=== PATIENT | male | born 1990 | race Caucasian/White ===

== ENCOUNTER 2016-12-25 12:15 | Emergency (ER) | payer OTHER ==
[~2016-12-25] VITALS: Ht 172.7 cm; Wt 77.4 kg
[~2016-12-25 12:15] MED LIST: TRAM50 PO
[2016-12-25 12:26] VITALS: BP 134/90; PULSE 82; RESP 16; TEMP 98.2; O2SAT 98
--- NOTE | 2016-12-25 12:56 | PD ---
HPI Chief Complaint: Headache Time Seen by Provider: 12:38 Travel History International Travel<30 days: No Contact w/Intl Traveler<30days: No Traveled to known affect area: No History of Present Illness HPI This patient complains of headache. He has chronic daily headaches but felt this was worse than usual. Location is bilateral and frontal. He's got a throbbing pounding headache. No thunderclap onset. No head injury or fever. 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 No alleviating factors. Duration of the worsening is one day. But his headache is chronic for years and daily basis. Symptoms are moderate PFSH Past Medical History Cancer: Yes (brain s/p surgery and radiation) Diminished Hearing: No Respiratory: Yes (hx of asthma as a child) Immunizations Current: No Tetanus Vaccination: < 5 Years ?: Not Past Surgical History Other Surgery: Yes (brain surgery 2013) Social History Alcohol Use: Yes ("WEEKENDS BIG TIME" 1X WEEK) Tobacco Use: Yes (chew) Substance Use: No Allergies-Medications (Allergen,Severity, Reaction): Coded Allergies: Penicillin (Verified Allergy, Severe, "I ", 12/25/16) Reported Meds & Prescriptions Reported Meds & Active Scripts Active Ultram (Tramadol HCl) 50 Mg Tab 50 Mg PO Q6 PRN Review of Systems General / Constitutional: No: Fever Eyes: No: Visual changes HENT: Positive: Headaches Cardiovascular: No: Chest Pain or Discomfort Respiratory: No: Shortness of Breath Gastrointestinal: No: Abdominal Pain Genitourinary: No: Dysuria Musculoskeletal: No: Pain Skin: No Rash Neurologic: Positive: Headache, No: Weakness Psychiatric: No: Depression Endocrine: No: Polydipsia Hematologic/Lymphatic: No: Easy Bruising Physical Exam Narrative GENERAL: Well-nourished, well-developed patient in no apparent distress. SKIN: Focused skin assessment reveals no rash and nodules. Skin is Warm and dry. HEAD: Atraumatic. Normocephalic. Craniotomy scar is evaluated and shows no sign of dehiscence or infection EYES: Pupils equal and round. No scleral icterus. No injection or drainage. ENT: No nasal bleeding or discharge. Mucous membranes pink and moist. NECK: Trachea midline. No JVD. No meningeal signs CARDIOVASCULAR: Regular rate and rhythm. No murmur appreciated. RESPIRATORY: No accessory muscle use. Clear to auscultation. Breath sounds equal bilaterally. GASTROINTESTINAL: Abdomen soft, non-tender, nondistended. Hepatic and splenic margins not palpable. MUSCULOSKELETAL: No obvious deformities. No clubbing. No cyanosis. No edema. NEUROLOGICAL: Awake and alert. No obvious cranial nerve deficits. Motor grossly within normal limits. Normal speech. PSYCHIATRIC: Appropriate mood and affect; insight and judgment normal. Data Data Last Documented VS Vital Signs Date Time Temp Pulse Resp B/P Pulse Ox O2 Delivery O2 Flow Rate FiO2 12/25/16 12:26 98.2 82 16 134/[address] Brain W/O Iv Contrast(Rout) (12/25/16 ) [facility] Medical Decision Making Medical Screen Exam Complete: Yes Emergency Medical Condition: Yes Medical Record Reviewed: Yes Differential Diagnosis Chronic headache, tumor recurrence, migraine Narrative Course I have reviewed the patient's electronic medical record. Reviewed a prior MRI from 2013 showing encephalomalacia without residual tumor Patient reports that his tumor was a benign growth and not cancerous He gets a CT scan every 6 months per his report but has not had one in a while He is neurologically intact Brain CT shows stable encephalomalacia but no new acute findings Stable for outpatient follow-up with primary care Diagnosis Primary Impression: History of brain cancer Additional Impression: Headache Qualified Code: R51 - Acute nonintractable headache, unspecified headache type Additional Instructions: The patient was advised to follow up with their physician and return if they worsen. Med/Other Pt SpecificInfo: Other Disposition: 01 DISCHARGE HOME Condition: Stable Carlos Hernandez MD Dec 25, 2016 12:56
--- NOTE | 2016-12-25 13:24 | RADHPO ---
EXAM DATE/TIME: 12/25/2016 13:09 [place] COMPARISON: CT BRAIN W/O CONTRAST, May 28, 2014, 4:55. INDICATIONS : Cephalgia. RADIATION DOSE: 60.43 CTDIvol (mGy) MEDICAL HISTORY : Benign brain tumor. SURGICAL HISTORY : Craniotomy. ENCOUNTER: Initial ACUITY: 1 day PAIN SCALE: 7/10 LOCATION: Bilateral frontal TECHNIQUE: Multiple contiguous axial images were obtained of the head. Using automated exposure control and adj ustment of the mA and/or kV according to patient size, radiation dose was kept as low as reasonably a chievable to obtain optimal diagnostic quality images. FINDINGS: CEREBRUM: The ventricles are normal for age. No evidence of midline shift, mass lesion, hemorrhage or acute in farction. No extra-axial fluid collections are seen. Encephalomalacia is again noted within the righ t temporal lobe status post resection. POSTERIOR FOSSA: The cerebellum and brainstem are intact. The 4th ventricle is midline. The cerebellopontine angle i s unremarkable. EXTRACRANIAL: The visualized portion of the orbits is intact. SKULL: The calvaria is intact. No evidence of skull fracture. Status post right temporal craniotomy. CONCLUSION: 1. 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 2. No acute infarct, acute hemorrhage, mass effect or extra-axial fluid collections. Scooter Gil MD on December 25, 2016 at 13:20 Board Certified Radiologist. This report was verified electronically.
== END 2016-12-25 14:48 | disposition home or self-care (01) ==
LOC: PHED 12:15
DX: R51 Headache (principal); Z86.011 Personal history of benign neoplasm of the brain
CPT/HCPCS: 70450

== ENCOUNTER 2017-04-03 23:55 | Emergency (ER) | payer OTHER ==
[~2017-04-03] VITALS: Ht 172.7 cm; Wt 80.7 kg
[2017-04-03 23:59] VITALS: BP 137/88; PULSE 87; RESP 16; TEMP 98.7; O2SAT 98
[2017-04-04 00:40] VITALS: BP 139/72; PULSE 77; RESP 16; O2SAT 99
[2017-04-04] MEDS ORDERED: ASPI1POW8 (01:42)
[2017-04-04] MEDS ORDERED: KETOROLAC TROMETHAMINE 60 MG/2 ML (IM) VIAL IM ONE (02:00)
[2017-04-04] MEDS ORDERED: ULTR50TA5 PO (02:07)
[2017-04-04] MEDS ORDERED: BUTA1CAP PO (02:07)
--- NOTE | 2017-04-04 02:08 | PD ---
HPI Chief Complaint: Headache Time Seen by Provider: 01:50 Travel History International Travel<30 days: No Contact w/Intl Traveler<30days: No Traveled to known affect area: No History of Present Illness HPI 26 years old male complains of headache. 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 Patient has history recurrent head ache since then. Patient had a CT scan done 3 months ago in the emergency room and it shows no acute changes. Patient states that he has frequent recurrent headache. Patient states that he has occasional nausea vomiting with the headache. Patient denies any photophobia or visual change. Patient denies any neck pain. Patient denies any chest pain or shortness of breath. Patient denies abdominal pain. Patient denies any focal weakness or numbness of extremity. Patient states the headache aching headache with throbbing headache localized the right side the head. PFSH Past Medical History Asthma: Yes Cancer: Yes (brain s/p surgery and radiation) Diminished Hearing: No Respiratory: Yes (hx of asthma as a child) Immunizations Current: No Migraines: Yes Tetanus Vaccination: < 5 Years Influenza Vaccination: No Past Surgical History Neurologic Surgery: Yes (brain surgery for a tumor ) Other Surgery: Yes (brain surgery 2013) Social History Alcohol Use: Yes (a couple beers a week ) Tobacco Use: Yes (chew ) Substance Use: Yes (marijuana occasionally ) Allergies-Medications (Allergen,Severity, Reaction): Coded Allergies: Penicillin (Verified Allergy, Severe, "I ", 04/04/17) Reported Meds & Prescriptions Reported Meds & Active Scripts Active Reported Bc Fast Pain Relief Powder (Aspirin-Caffeine Powder) 845-65 Mg Powderpack Review of Systems General / Constitutional: No: Fever Eyes: No: Visual changes HENT: Positive: Headaches Cardiovascular: No: Chest Pain or Discomfort Respiratory: No: Shortness of Breath Gastrointestinal: No: Abdominal Pain Genitourinary: No: Dysuria Musculoskeletal: No: Pain Skin: No Rash Neurologic: No: Weakness Psychiatric: No: Depression Endocrine: No: Polydipsia Hematologic/Lymphatic: No: Easy Bruising Physical Exam Narrative GENERAL: Well-nourished, well-developed patient. SKIN: Focused skin assessment warm/dry. HEAD: Normocephalic. EYES: No scleral icterus. No injection or drainage. Pupils 3 mm equal reactive. NECK: Supple, trachea midline. No JVD or lymphadenopathy. CARDIOVASCULAR: Regular rate and rhythm without murmurs, gallops, or rubs. RESPIRATORY: Breath sounds equal bilaterally. No accessory muscle use. GASTROINTESTINAL: Abdomen soft, non-tender, nondistended. MUSCULOSKELETAL: No cyanosis, or edema. BACK: Nontender without obvious deformity. No CVA tenderness. Neurologic exam normal. Data Data Last Documented VS Vital Signs Date Time Temp Pulse Resp B/P Pulse Ox O2 Delivery O2 Flow Rate FiO2 04/04/17 00:42 16 Room Air 04/04/17 00:40 77 139/72 99 04/03/17 23:59 98.7 Orders Ketorolac Inj (Toradol Inj) (04/04/17 02:00) MDM Medical Decision Making Medical Screen Exam Complete: Yes Emergency Medical Condition: Yes Differential Diagnosis Differential diagnosis including recurrent headache, tension headache, cluster headache, migraine headache, recurrent tumor. Narrative Course 26 years old male with recurrent headache. History of astrocytoma status post resection. Toradol 60 mg IM. Diagnosis Primary Impression: Cephalgia Qualified Code: G44.89 - Other headache syndrome Patient Instructions: General Instructions Additional Instructions: Take medications as needed for headache. Follow-up with personal physician and neurologist. Return if worse. Med/Other Pt SpecificInfo: Prescription(s) given Scripts Nilpmhuwzz-Sqohpdmkjzvhq-Pzniefks (Fioricet)50-300-40 Mg Cap1-2 Cap PO Q6H PRN ( HEADACHE) #30 CAP Ref 0 Prov:Marc Mai MD 04/04/17 Tramadol (Ultram)50 Mg Tab50 Mg PO Q6H PRN (HEADACHE) #20 TAB Prov:Marc Mai MD 04/04/17 Disposition: 01 DISCHARGE HOME Condition: Stable Marc Mai MD Apr 04, 2017 02:07
[2017-04-04 02:32] VITALS: BP 131/67
== END 2017-04-04 02:27 | disposition home or self-care (01) ==
LOC: PHED 23:55
DX: G44.89 Other headache syndrome (principal); R11.2 Nausea with vomiting, unspecified; Z72.0 Tobacco use; Z98.890 Other specified postprocedural states; Z87.09 Personal history of other diseases of the respiratory system; Z85.841 Personal history of malignant neoplasm of brain; Z86.69 Personal history of other diseases of the nervous system and sense organs
CPT/HCPCS: 96372; 99284; J1885

== ENCOUNTER 2018-11-04 18:19 | Observation (INO) ==
[2018-11-04] MEDS ORDERED: Sod Chloride 0.9% Inj 1,000 ML IV.SIG ONE (18:40)
[2018-11-04] MEDS ORDERED: Morphine Inj 4 MG/ML Vial IV.PUSH ONE (18:40)
--- NOTE | 2018-11-04 18:56 | ED ---
HPI General Chief Complaint: Abdominal Pain Stated Complaint: lower abd pain x1week Time Seen by Provider: 11/04/18 18:27 Source: patient Mode of arrival: ambulatory Limitations: no limitations History of Present Illness HPI narrative: Patient is a 28-year-old male who presents with complaint of left lower quadrant abdominal pain for the last week that was initially intermittent and has become more and more constant. It improves when he lies flat and worsens when he stands up straight. He has not been lifting any heavy objects. No nausea nor vomiting. No diarrhea nor constipation. No fever nor chills. No hematuria nor dysuria. complaint: Reports abdominal pain Onset (ago): day(s) Pain Consistency: constant and intermittent Location: Reports LLQ Severity: moderate Quality: Reports stabbing Radiation: Reports none Relieving factors: nothing Exacerbating factors: nothing Associated symptoms: Reports denies other symptoms Related Data Home Medications Medication Instructions Recorded Confirmed No Known Home Medications 04/01/18 11/04/18 Allergies Allergy/AdvReac Type Severity Reaction Status Date / Time penicillin G Allergy Severe "I " Verified 11/04/18 18:20 Review of Systems ROS: all other systems reviewed are negative [facility] Medical History Medical History Astrocytoma brain tumor (Acute) Benign brain tumor (Acute) Headache (Acute) Surgical History Surgical History Hx of craniotomy (Acute) Social History Social History Substance History: Active Abuse Second Hand Smoke Exposure: No Smoking Status: Never smoker Tobacco Type: Smokeless Tobacco How Often Do You Have a Drink Containing Alcohol: 2 to 4 times a month Recent Travel in [facility] within the Last 8 Weeks: No Recent Out of Country Travel within the Last 8 Weeks: No Substance Abuse Detail Marijuana: Substance Use Status: Active Substance Frequency: "sometimes" Immunization History Tetanus Immunization: <5 Years Exam Narrative Exam Narrative: GENERAL: Well-appearing male in no acute respiratory distress SKIN: Focused skin assessment warm/dry. No rashes. HEAD: Atraumatic. Normocephalic. EYES: Pupils equal and round. No scleral icterus. No injection or drainage. ENT: No nasal bleeding or discharge. Mucous membranes pink and moist. NECK: Trachea midline. No JVD. CARDIOVASCULAR: Regular rate and rhythm. No murmur appreciated. Intact and equal peripheral pulses. RESPIRATORY: No accessory muscle use. Clear to auscultation. Breath sounds equal bilaterally. GASTROINTESTINAL: Abdomen soft, light tenderness in left lower quadrant, nondistended. Hepatic and splenic margins not palpable. No inguinal hernias. MUSCULOSKELETAL: No obvious deformities. No clubbing. No cyanosis. No edema. NEUROLOGICAL: Awake and alert. No obvious cranial nerve deficits. Motor grossly within normal limits. Normal speech. PSYCHIATRIC: Appropriate mood and affect; insight and judgment normal. Course Initial Documented Vital Signs Temperature 98.1 F 11/04/18 18:20 Pulse Rate 86 11/04/18 18:20 Respiratory Rate 16 11/04/18 18:20 Blood Pressure 124/68 11/04/18 18:20 Pulse Oximetry 99 11/04/18 18:20 Last Documented Vital Signs Temperature 98.1 F 11/04/18 18:20 Pulse Rate 82 11/04/18 19:26 Respiratory Rate 16 11/04/18 19:26 Blood Pressure 141/71 H 11/04/18 19:26 Pulse Oximetry 100 11/04/18 19:26 Medical Decision Making MDM Narrative Medical decision making narrative: Patient is a 28-year-old male who presents with complaint of abdominal pain. Labs are relatively unremarkable. CT does show an ileus. He has been admitted to Dr. [place], hospitalist senior front end web developer, for bowel rest and IV fluids. Medical Screen Exam Complete: Yes Emergency Medical Condition: Yes Differential Diagnosis Differential Diagnosis: Differential diagnosis includes but is not limited to hernia, renal colic, diverticulitis. Medical Records Medical records reviewed: Yes I reviewed the patient's medical records. Lab Data Lab results reviewed: Yes I reviewed the patient's lab results. Result diagrams: 11/04/18 19:05 11/04/18 19:05 Lab Results 11/04/18 11/04/18 11/04/18 Range/Units 18:52 19:05 19:05 CBC w Diff Auto diff final WBC 9.9 (4.0-11.0) th/mm3 RBC 4.67 (4.50-5.90) mil/mm3 Hgb 14.3 (13.0-17.0) gm/dL Hct 40.8 (39.0-51.0) % MCV 87.3 (80.0-100.0) fL MCH 30.6 (27.0-34.0) pg MCHC 35.0 (32.0-36.0) % RDW 11.6 (11.6-17.2) % Plt Count 276 (150-450) th/mm3 MPV 7.8 (7.0-11.0) fL Neut % (Auto) 69.3 (16.0-70.0) % Lymph % (Auto) 22.5 (9.0-44.0) % Jewell % (Auto) 5.9 (0.0-8.0) % Eos % (Auto) 1.7 (0.0-4.0) % Baso % (Auto) 0.6 (0.0-2.0) % Neut # (Auto) 6.8 (1.8-7.7) th/mm3 Lymph # (Auto) 2.2 (1.0-4.8) th/mm3 Jewell # (Auto) 0.6 (0.0-0.9) th/mm3 Eos # (Auto) 0.2 (0.0-0.4) th/mm3 Baso # (Auto) 0.1 (0.0-0.2) th/mm3 WBC Differential . Differential Comment . Sodium 136 (136-145) meq/L Potassium 4.1 (3.5-5.1) meq/L Chloride 102 (98-107) meq/L Carbon Dioxide 28.1 (21.0-32.0) meq/L Anion Gap 6 (5-15) meq/L BUN 19 H (7-18) mg/dL Creatinine 0.94 (0.60-1.30) mg/dL Estimated GFR Greater than 89 (>89) mL/min Random Glucose 114 H (74-106) mg/dL Calcium 9.1 (8.5-10.1) mg/dL Total Bilirubin 0.7 (0.2-1.0) mg/dL AST 21 (15-37) U/L ALT 40 (12-78) U/L Alkaline Phosphatase 57 (45-117) U/L Total Protein 8.0 (6.4-8.2) g/dL Albumin 4.1 (3.4-5.0) g/dL Lipase 146 (73-393) U/L Urine Color Yellow (Yellw/Straw) Urine Clarity Clear (Clear) Urine pH 6.5 (5.0-8.5) Ur Specific Mcdonough 1.020 (1.002-1.035) Urine Protein Negative (Neg-Trace) mg/dL Urine Glucose (UA) Negative (Negative) mg/dL Urine Ketones Negative (Negative) mg/dL Urine Occult Blood Moderate H (Negative) Urine Nitrate Negative (Negative) Urine Bilirubin Negative (Negative) Urine Urobilinogen 0.2 (Less than 2) mg/dL Ur Leukocyte Esterase Negative (Negative) Urine RBC 4-15 H (0-3) /hpf Amorphous Sediment Rare H (None) /hpf Micro UA Comment Culture not ind Ur Microscopic Review Microscopic reviewed Urine Culture Comments Culture not ind Imaging Data Attestation: I personally reviewed and interpreted this imaging study as follows : Radiologist's impression: Abdomen/Pelvis CT 11/04/18 18:40 CONCLUSION: 1. Mild localized small bowel ileus in the central abdomen. No inflammatory changes within the abdomen and pelvis. Appendix normal. Exam otherwise unremarkable. Discharge Plan Discharge Order Discharge Orders: ED Use Only Admit Order (Routine); Ordered 11/04/18 Ordered By: Joycelyn Brown Physicians Team ED Provider: Joycelyn Brown Primary Care Provider: Primary Care [facility]ii[facility] Rxs /Orders / Referrals /Forms Prescriptions: No Action No Known Home Medications RF: 0 Discharge Interventions Interventions: Vital Signs Last Done: 11/04/18 19:26 Status ED Status: Pending Admission
[2018-11-04 19:12] LABS: Bilirubin,Urine Negative (Negative); Clarity,Urine Clear (Clear); Color,Urine Yellow (Yellw/Straw); Glucose,Urine (UA) Negative (Negative); Leukocyte Esterase,Urine Negative (Negative); Nitrite,Urine Negative (Negative); PH,Urine 6.5 (5.0-8.5); Urobilinogen,Urine 0.2 mg/dL (Less than 2)
[2018-11-04 19:13] LABS: Baso # (Auto) 0.1 th/mm3 (0.0-0.2); Baso % (Auto) 0.6 % (0.0-2.0); Eos # (Auto) 0.2 th/mm3 (0.0-0.4); Eos % (Auto) 1.7 % (0.0-4.0); Hematocrit 40.8 % (39.0-51.0); Hemoglobin 14.3 gm/dL (13.0-17.0); Lymph # (Auto) 2.2 th/mm3 (1.0-4.8); Lymph % (Auto) 22.5 % (9.0-44.0); Mean Corpuscular Hemoglobin 30.6 pg (27.0-34.0); Mean Corpuscular Volume 87.3 fL (80.0-100.0); Mean Platelet Volume 7.8 fL (7.0-11.0); Mono # (Auto) 0.6 th/mm3 (0.0-0.9); Mono % (Auto) 5.9 % (0.0-8.0); Neut # (Auto) 6.8 th/mm3 (1.8-7.7); Neut % (Auto) 69.3 % (16.0-70.0); Platelet Count 276 th/mm3 (150-450); Red Blood Count 4.67 mil/mm3 (4.50-5.90); Red Cell Distribution Width 11.6 % (11.6-17.2); White Blood Count 9.9 th/mm3 (4.0-11.0)
[2018-11-04 19:14] LABS: Amorphous Sediment,Urine Rare /hpf
[2018-11-04 19:24] LABS: Chloride 102 meq/L (98-107); Potassium 4.1 meq/L (3.5-5.1); Sodium 136 meq/L (136-145)
[2018-11-04 19:28] LABS: Albumin 4.1 g/dL (3.4-5.0); Anion Gap 6 meq/L (5-15); Blood Urea Nitrogen 19 mg/dL (7-18); Calcium 9.1 mg/dL (8.5-10.1); Carbon Dioxide 28.1 meq/L (21.0-32.0); Glucose,Random 114 mg/dL (74-106); Lipase 146 U/L (73-393)
[2018-11-04 19:31] LABS: Alanine Aminotransferase 40 U/L (12-78); Aspartate Aminotransferase 21 U/L (15-37); Glomerular Filtration Rate Greater Than 89 mL/min (>89)
[2018-11-04 19:34] LABS: Alkaline Phosphatase 57 U/L (45-117)
--- NOTE | 2018-11-04 19:49 | CT ---
EXAM DATE: 11/04/2018 7:39 PM EST AGE/SEX: 28 years / Male INDICATIONS: Lower abdominal pain. CLINICAL DATA: This is the patient's initial encounter. Patient reports that signs and symptoms have been present for 1 week and indicates a pain score of 6/10. MEDICAL/SURGICAL HISTORY: . Brain tumor. Craniotomy. ORAL CONTRAST: No oral contrast ingested. RADIATION DOSE: 9.08 CTDI (mGy) COMPARISON: No prior exams available for comparison. TECHNIQUE: Multiple contiguous axial images were obtained through the abdomen and pelvis following b olus infusion of 100 ml Omnipaque 350 (iohexol) nonionic water-soluble contrast as a single exam do se. No oral contrast ingested. Using automated exposure control and adjustment of the mA and/or kV a ccording to patient size, radiation dose was kept as low as reasonably achievable to obtain optimal d iagnostic quality images. DICOM format image data is available electronically for review and compari son. FINDINGS: Lung bases are clear. No significant abnormality in the liver, spleen, adrenals, kidneys or pancreas. No free fluid. No bowel obstruction. No adenopathy. There is a nonspecific localized small bowel ileu s in the central abdomen with air-fluid level and dilatation to 4 cm. CONCLUSION: 1. Mild localized small bowel ileus in the central abdomen. No inflammatory changes within the abdom en and pelvis. Appendix normal. Exam otherwise unremarkable. Electronically signed by: Morro Dunn MD Board Certified Radiologist 11/04/2018 7:48 PM EST
[2018-11-04] MEDS ORDERED: Acetaminophen 325 MG Tablet PO PRN (20:33)
[2018-11-04] MEDS ORDERED: Bisacodyl 10 MG Supp RECTAL PRN (20:33)
[2018-11-04 20:54] LABS: Amphetamine Screen,Urine Neg (Neg); Barbiturate Screen,Urine Neg (Neg)
[2018-11-04 20:55] LABS: Cannabinoid Screen,Urine Neg (Neg); Cocaine Screen,Urine Neg (Neg)
[2018-11-04 21:02] LABS: Opiate Screen,Urine Neg (Neg)
[2018-11-04] MEDS: Sod Chloride 0.9% Inj 1,000 ML IV.CONT SCH (21:11)
[2018-11-04 21:22] LABS: Magnesium 2.3 mg/dL (1.5-2.5)
[2018-11-04 21:26] LABS: Phosphorus 3.7 mg/dL (2.5-4.9)
[2018-11-05 06:23] LABS: Chloride 106 meq/L (98-107); Potassium 3.6 meq/L (3.5-5.1); Sodium 140 meq/L (136-145)
[2018-11-05 06:30] LABS: Calcium 8.3 mg/dL (8.5-10.1)
[2018-11-05 06:31] LABS: Alanine Aminotransferase 32 U/L (12-78); Albumin 3.5 g/dL (3.4-5.0); Anion Gap 7 meq/L (5-15); Aspartate Aminotransferase 20 U/L (15-37); Blood Urea Nitrogen 14 mg/dL (7-18); Carbon Dioxide 26.6 meq/L (21.0-32.0); Glucose,Random 85 mg/dL (74-106)
[2018-11-05 06:33] LABS: Total Protein 6.8 g/dL (6.4-8.2)
[2018-11-05 06:34] LABS: Alkaline Phosphatase 44 U/L (45-117); Glomerular Filtration Rate Greater Than 89 mL/min (>89)
[2018-11-05] MEDS: Sod Chloride 0.9% Inj 1,000 ML IV.CONT SCH ×2 (08:06→23:32)
--- NOTE | 2018-11-05 08:52 | XR ---
EXAM DATE: 11/05/2018 8:46 AM EST AGE/SEX: 28 years / Male INDICATIONS: Left lower quadrant pain. CLINICAL DATA: This is the patient's subsequent encounter. Patient reports that signs and symptoms h ave been present for 3 days and indicates a pain score of 2/10. MEDICAL/SURGICAL HISTORY: . Brain tumor. Craniotomy. COMPARISON: No prior exams available for comparison. FINDINGS: Supine and upright views of the abdomen were performed. The abdominal bowel gas pattern is normal. No air-fluid levels are seen. No abnormal masses, calcifications, or organomegaly is seen. The visualiz ed lower lungs are clear. No evidence of free intraperitoneal gas. The osseous structures are unremar kable. CONCLUSION: Negative examination. There is borderline hepatomegaly, possible Jada's lobe. Electronically signed by: Yonas Celestin MD Board Certified Radiologist 11/05/2018 8:51 AM EST
--- NOTE | 2018-11-05 09:53 | P.HPIM ---
History of Present Illness Primary Care Physician: No Primary Care Physician History of Present Illness: 28-year-old white male being admitted for intractable left lower quadrant pain. Patient was in his USOH until about 1 week ago when he began experiencing left lower quadrant pain. Says that the pain would initially wax and wane, then became constant ultimately. Would ease up when he would lie down but worsens upon standing. Reports having chronic nausea from his history of partial brain resection but no acute worsening during this week. Reports having one episode of acute diarrhea that hasn't recurred. Denies taking any NSAIDS or narcotics. Denies having any hx of abd surgeries. In the ED his blood work was unremarkable, CT scan which I independently reviewed showed moderate stool as well as gas, radiology read a possible ileus. Was given IV fluids and pain medication and Zofran. 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) Headache (Acute) Surgical History Surgical History Hx of craniotomy (Acute) Social History Social History Substance History: No History of Abuse Second Hand Smoke Exposure: No Smoking Status: Never smoker Tobacco Type: Smokeless Tobacco How Often Do You Have a Drink Containing Alcohol: 2 to 4 times a month Recent Travel in [facility] within the Last 8 Weeks: No Recent Out of Country Travel within the Last 8 Weeks: No Substance Abuse Detail Marijuana: Substance Use Status: Active Substance Frequency: "sometimes" Immunization History Tetanus Immunization: <5 Years Hx Influenza Vaccine This Season: No Medications and Allergies Allergies Allergy/AdvReac Type Severity Reaction Status Date / Time penicillin G Allergy Severe "I " Verified 11/04/18 18:20 Home Medications Medication Instructions Recorded Confirmed Type No Known Home Medications 04/01/18 11/04/18 History Active Medications: Active Medications Acetaminophen (Tylenol) 650 mg PO Q4H PRN PRN Reason: Temp > 100.4 Al Hydroxide/Mg Hydroxide (Milk Of Magnesia Liq) 30 ml PO Q12H PRN PRN Reason: Mild Constipation Bisacodyl (Dulcolax Supp) 10 mg RECTAL DAILY PRN PRN Reason: SEVERE CONSITIPATION Sodium Chloride (Ns Inj) 1,000 mls @ 100 mls/hr IV.CONT .Q10H [facility] Last Admin: 11/05/18 08:06 Dose: 100 mls/hr Lactulose (Lactulose Liq) 30 ml PO DAILY PRN PRN Reason: SEVERE CONSITIPATION Ondansetron HCl (Zofran Inj) 4 mg IV.PUSH Q6H PRN PRN Reason: NAUSEA OR VOMITING Sennosides (Senokot) 17.2 mg PO Q12H PRN PRN Reason: Moderate Constipation Sodium Chloride (Ns Flush) 2 ml IV.FLUSH PRN PRN PRN Reason: FLUSH AFTER USING IV ACCESS Sodium Chloride (Ns Flush) 2 ml IV.FLUSH BID [facility] Last Admin: 11/05/18 08:18 Dose: Not Given Physical Exam Vital signs: Vital Signs 11/04/18 18:20 11/04/18 18:40 11/04/18 18:55 Temperature 98.1 F Pulse Rate 86 78 Respiratory Rate 16 18 Blood Pressure 124/68 125/72 Pulse Oximetry 99 98 98 11/04/18 19:25 11/04/18 19:26 11/04/18 20:55 Temperature Pulse Rate 82 72 Respiratory Rate 16 16 18 Blood Pressure 141/71 H 129/69 Pulse Oximetry 100 99 11/04/18 22:15 11/05/18 00:00 11/05/18 08:00 Temperature 97.0 F L 97.7 F 97.0 F L Pulse Rate 80 75 63 Respiratory Rate 18 18 22 Blood Pressure 131/81 125/82 116/74 Pulse Oximetry 97 97 96 Intake & Output 11/04/18 11/05/18 11/05/18 18:59 06:59 18:59 Intake Total 1030 / 1030 1000 / 1000 Output Total 350 / 350 Balance 680 / 680 1000 / 1000 Weight 74.8 kg 70.9 kg Intake: IV 1030 / 1030 1000 / 1000 NS Inj 1,000 ML @ 100 mls/hr IV 30 / 30 1000 / 1000 .CONT .Q10H [facility] Rx#:[id number] NS Inj 1,000 ML @ Wide Open IV. 1000 / 1000 SIG BOLUS ONE Rx#:[id number] Output: Urine 350 / 350 Other: # Voids 2 Date of Last Bowel Movement 11/04/18 Weight On Admission 70.9 kg Narrative: VS: afebrile GENERAL: Awake, alert, no acute distress SKIN: Warm and dry. EYES: No scleral icterus. No injection or drainage. ENT: No nasal bleeding or discharge. Mucous membranes pink and moist. CARDIOVASCULAR: Regular rate and rhythm. no murmurs RESPIRATORY: No accessory muscle use. Clear to auscultation. Breath sounds equal bilaterally. GASTROINTESTINAL: Abdomen soft, mild left lower acute tenderness to palpation, nondistended, otherwise nontender in all other quadrants Extremities: No clubbing, cyanosis, or edema. No obvious deformities. MUSCULOSKELETAL: grossly intact ROM in upper and lower extremities proximally; adequate muscle bulk and tone for age and habitus NEUROLOGICAL: Awake and alert. No obvious cranial nerve deficits. No facial droop nor slurred speech noted. PSYCHIATRIC: Appropriate mood and affect; insight and judgment normal. Results Labs CBC & Chem 7: 11/04/18 19:05 11/05/18 05:25 Imaging Impressions Abdomen/Pelvis CT 11/04/18 18:40 CONCLUSION: 1. Mild localized small bowel ileus in the central abdomen. No inflammatory changes within the abdomen and pelvis. Appendix normal. Exam otherwise unremarkable. Abdomen X-Ray 11/05/18 07:28 CONCLUSION: Negative examination. There is borderline hepatomegaly, possible Jada's lobe. Caprini VTE Risk Assessment Caprini VTE Risk Assessment: No/Low Risk (score <= 1) Caprini Risk Assessment Model: Point Value = 1 Point Value = 2 Point Value = 3 Point Value = 5 Age 41-60 Minor surgery BMI > 25 kg/m2 Swollen legs Varicose veins or History of unexplained or recurrent spontaneous Oral contraceptives or hormone replacement Sepsis (< 1 month) Serious lung disease, including pneumonia (< 1 month) Abnormal pulmonary function Acute myocardial infarction Congestive heart failure (< 1 month) History of inflammatory bowel disease Medical patient at bed rest Age 61-74 Arthroscopic surgery Major open surgery (> 45 min) Laparoscopic surgery (> 45 min) Malignancy Confined to bed (> 72 hours) Immobilizing plaster cast Central venous access Age >= 75 History of VTE Family history of VTE Factor V Leiden Prothrombin [id number] Lupus anticoagulant Anticardiolipin antibodies Elevated serum homocysteine Heparin-induced thrombocytopenia Other congenital or acquired thrombophilia Stroke (< 1 month) Elective arthroplasty Hip, pelvis, or leg fracture Acute spinal cord injury (< 1 month) Prophylaxis Regimen: Total Risk Factor Score Risk Level Prophylaxis Regimen 0-1 Low Early ambulation 2 Moderate Order ONE of the following: *Sequential Compression Device (SCD) *Heparin 5000 units SQ BID 3-4 Higher Order ONE of the following medications: *Heparin 5000 units SQ TID *Enoxaparin/Lovenox 40 mg SQ daily (WT < 150 kg, CrCl > 30 mL/min) *Enoxaparin/Lovenox 30 mg SQ daily (WT < 150 kg, CrCl > 10-29 mL/min) *Enoxaparin/Lovenox 30 mg SQ BID (WT < 150 kg, CrCl > 30 mL/min) AND/OR *Sequential Compression Device (SCD) 5 or more Highest Order ONE of the following medications: *Heparin 5000 units SQ TID (Preferred with Epidurals) *Enoxaparin/Lovenox 40 mg SQ daily (WT < 150 kg, CrCl > 30 mL/min) *Enoxaparin/Lovenox 30 mg SQ daily (WT < 150 kg, CrCl > 10-29 mL/min) *Enoxaparin/Lovenox 30 mg SQ BID (WT < 150 kg, CrCl > 30 mL/min) AND *Sequential Compression Device (SCD) Assessment and Plan Plan 28-year-old white male being admitted for LLQ pain LLQ pain Suspect worsening constipation, possible PUD Consulting GI for possible EGD, n.p.o. Soapsuds enema for now IV fluids IV Protonix Chronic nausea Secondary to brain tumor resection, Zofran as needed H&P: Quality VTE Deep Vein Thrombosis/Pulmonary Embolism Present on Admission: No
[2018-11-05] MEDS ORDERED: Chlorhexidine Gluconate 2% 1 Pack (2 Cloths) TOPICAL ONE (15:04)
[2018-11-05] MEDS ORDERED: Sodium Chlor 0.9% Inj 500 ML IV.SIG SCH (16:00)
[2018-11-05] MEDS ORDERED: Lidocaine PF 1% Inj 5 ML Syringe INFILTRATN ONE (17:27)
--- NOTE | 2018-11-05 17:39 | GIPROC ---
[facility] [address] [place] [address], [id number] EGD PROCEDURE REPORT EXAM DATE: 11/05/2018 PATIENT NAME: Deandre Dempsey MR #: [id number] BIRTHDATE: 1990 ATTENDING: Tiffany Vallecillo MD ORDER #: [id number] SALESPERSON SHEET MUSIC: Evelyn Hogue and Elizabeth Cihrinos STATUS: inpatient INDICATIONS: The patient is a 28 yr old male here for an EGD due to epigastric abdominal pain and abdominal pain in the left lower quadrant PROCEDURE PERFORMED: EGD w/ biopsy MEDICATIONS: None and Per Anesthesia. TOPICAL ANESTHETIC: CONSENT: The patient understands the risks and benefits of the procedure and understands that these risks include, but are not limited to: sedation, allergic reaction, infection, perforation and/or bleeding. Alternative means of evaluation and treatment include, among others: physical exam, x-rays, and/or surgical intervention. The patient elects to proceed with this endoscopic procedure. medical equipment was checked for proper function. Hand hygiene and appropriate measures for infection prevention was taken. After the risks, benefits and alternatives of the procedure were thoroughly explained, Informed consent was verified, confirmed and timeout was successfully executed by the treatment team. The patient was anesthetized with topical anesthesia and the Pentax EG-[id number] endoscope was introduced through the mouth and advanced to the second portion of the duodenum. Retroflexed views revealed no abnormalities The gastroscope was then slowly withdrawn and removed. ESOPHAGUS: There was LA Class A esophagitis noted. There was short segment Carlos's esophagus found in the distal esophagus. The length of circumferential Carlos's was 1cm ([place] C1) and the length of Maximal extent of Carlos's was 1cm ([place] M1). There was no nodular mucosa noted in the Carlos's segment. A biopsy was performed using cold forceps. Sample sent for histology. STOMACH: There was erythematous moderate gastritis in the gastric antrum. A biopsy was performed using cold forceps. Sample sent for histology. DUODENUM: The duodenal mucosa appeared normal in the bulb and second portion of the duodenum. ADVERSE EVENTS: There were no complications. IMPRESSIONS: 1. There was LA Class A esophagitis noted 2. There was short segment Carlos's esophagus found in the distal esophagus; biopsy was performed 3. There was erythematous gastritis in the gastric antrum; biopsy was performed 4. Normal duodenal mucosa in the bulb and second portion of the duodenum 5. Retroflexed views revealed no abnormalities RECOMMENDATIONS: 1. Await biopsy results. Biopsy results will not be ready for 7-10 days. If you don't hear from us in two weeks, call our office for biopsy results. 2. Anti-reflux regimen 3. Continue PPI 4. Avoid NSAIDS PATIENT CONDITION: stable DISPOSITION: Inpatient REPEAT EXAM: Return 1 year EGD pending biopsy results Tiffany Vallecillo MD eSigned: Tiffany Vallecillo MD 11/05/2018 5:39 PM cc: PATIENT NAME: Deandre Dempsey MR#: [id number]
--- NOTE | 2018-11-05 18:04 | MB ---
cc: Tiffany Vallecillo MD DATE: 11/05/2018 REASON FOR CONSULTATION: Abdominal pain. HISTORY OF PRESENT ILLNESS: Mr. Dempsey is a 28-year-old gentleman who basically came in with some nausea and abdominal pain. He says abdominal pain is mostly located in the lower abdomen. Nausea has been a chronic problem for him since his brain resection for an astrocytoma in the past. He had 1 episode of diarrhea, but this has not recurred. CT scan performed in the emergency room shows possible ileus, otherwise unremarkable. PAST MEDICAL HISTORY: Brain tumor headaches, chronic nausea. PAST SURGICAL HISTORY: Craniotomy. SOCIAL HISTORY: No tobacco, no alcohol reported, except some social drinking 2-4 times a month. He does use marijuana. ALLERGIES: PENICILLIN. MEDICINES ON ADMISSION: None. PHYSICAL EXAMINATION: GENERAL: A well-developed, well-nourished man, in no apparent distress. VITAL SIGNS: Stable. HEAD AND NECK: Anicteric sclerae. LUNGS: Bilateral air entry with rales. ABDOMEN: Soft, nontender. No hepatosplenomegaly. Bowel sounds are present. CENTRAL NERVOUS SYSTEM: Nonfocal. RECTAL: Deferred at this time. LABORATORY DATA: Reveal a white cell count of 9.9, hemoglobin 14. CT revealed mild localized small bowel ileus in the central abdomen, otherwise unremarkable. Abdominal x-ray is unremarkable. IMPRESSION: Abdominal pain with nausea. RECOMMENDATIONS: Esophagogastroduodenoscopy requested by Dr. De La Cruz. This will be scheduled for today, n.p.o. at this time. Further recommendations to follow. Thank you for this referral. MD ANA MARIA Pederson/francis , 05:20 PM , 05:26 PM
[2018-11-06 00:14] VITALS: O2SAT 97
[2018-11-06 08:06] VITALS: BP 105/56; PULSE 68; RESP 18; TEMP 96.8
[2018-11-06] MEDS ORDERED: PEG 3350/E-Lyte Soln 4000 ML Bottle PO ONE (09:09)
--- NOTE | 2018-11-06 09:15 | P.PNIM ---
Subjective Interval history: Nursing reports the patient did have a bowel movement yesterday. Did tolerate dinner. Patient himself says he was able to tolerate dinner last night and breakfast this morning. Says his pain is a 3/10 this morning. Says he is ready to go back to work. He was advised that his EGD findings were very suspicious for Carlos's esophagus and that he needed to take acid reflux medications regularly and to refrain from NSAIDs. Advised him to take a stool softener on a daily basis. Is willing to undergo a GoLYTELY prep. Physical Exam Vital signs: Vital Signs 11/05/18 12:00 11/05/18 15:02 11/05/18 18:06 Temperature 96.8 F L 96.8 F L 98.1 F Pulse Rate 64 64 67 Respiratory Rate 23 22 16 Blood Pressure 118/63 118/63 112/77 Pulse Oximetry 98 98 99 11/05/18 20:00 11/06/18 00:00 11/06/18 08:00 Temperature 97.6 F 98.7 F 96.8 F L Pulse Rate 80 65 68 Respiratory Rate 20 20 18 Blood Pressure 129/76 112/59 L 105/56 L Pulse Oximetry 99 97 97 Intake & Output 11/05/18 11/06/18 11/06/18 18:59 06:59 18:59 Intake Total 1100 / 1100 1240 / 1240 Balance 1100 / 1100 1240 / 1240 Intake: IV 1000 / 1000 1000 / 1000 NS Inj 1,000 ML @ 100 mls/hr IV 1000 / 1000 1000 / 1000 .CONT .Q10H [facility] Rx#:[id number] Oral 240 / 240 Anesthesia Amount 100 / 100 Other: # Voids 4 Date of Last Bowel Movement 11/01/18 11/05/18 11/06/18 Narrative: Clear lungs bilaterally, unlabored breathing Heart sounds regular rate rhythm Awake alert, no acute distress No facial droop, no slurred speech Abdomen soft, nontender, nondistended, normoactive bowel sounds Results Labs CBC & Chem 7: 11/04/18 19:05 11/05/18 05:25 Assessment and Plan Plan 28-year-old white male being admitted for LLQ pain LLQ pain Status post soapsuds enema, slightly improved with constipation, pain slightly improved, tolerating p.o. intake, status post EGD with erythematous gastritis and Carlos's esophagus, biopsies pending. Patient was advised to follow-up closely with GI and take anti-acids. Chronic nausea Secondary to brain tumor resection, Zofran as needed Progress Note: Quality VTE Deep Vein Thrombosis/Pulmonary Embolism Present on Admission: No
== END 2018-11-06 09:55 | disposition home or self-care (01) ==
LOC: PHEDA 18:19 → PHED 18:19 → PH3 21:33
PROVIDERS: ADMIT Hospitalist; ATTEND Hospitalist
PROC: PANENDO (2018-11-05 17:27)
DX: D33.2 Benign neoplasm of brain, unspecified; K29.70 Gastritis, unspecified, without bleeding; F12.90 Cannabis use, unspecified, uncomplicated; K20.9 Esophagitis, unspecified
CPT/HCPCS: 74019; 74177; 80053; 80307; 81001; 83690; 83735; 84100; 85025; 88305; 88312; 90761; 90774; 96361; 96374; 99285; C8952; G0378; J2270; J2704; J7030; J7120; Q9967